=== PATIENT | female | born 1955 | race Caucasian/White ===

== ENCOUNTER 2017-11-22 09:41 | Observation (INO) | END 2017-11-23 14:58 | disposition home or self-care (01) ==

== ENCOUNTER 2018-08-09 18:36 | Emergency (ER) | payer OTHER ==
[~2018-08-09] VITALS: Ht 162.6 cm; Wt 63.1 kg
[~2018-08-09 18:36] MED LIST: BENA40TA56 PO; HYDR-3601 PO; LEVO50TA71 PO; LOVA20TA PO; NIFE30TA23 PO
[2018-08-09 18:38] VITALS: Ht 162.6 cm; Wt 63.1 kg
[2018-08-09] MEDS ORDERED: KETOROLAC 30 MG INJ IM STA (19:43)
[2018-08-09] MEDS ORDERED: MELO15TA30 PO (20:14)
--- NOTE | 2018-08-09 20:22 | ERD ---
ER Documentation Chief Complaint Chief Complaint unusual skin growth on her R elbow since HPI 30-year-old female patient with past medical history of hypertension, hyperlipidemia, thyroid problems presents to ED complaining of right elbow injury that occurred patient ports that she accidentally hit her elbow onto the table. Reports that she has normal range of motion however a bump started to form on her elbow. Denies any fever, chills, loss of sensation, loss of range of motion, increased redness. ROS All systems reviewed and are negative except as per history of present illness. Medications Home Meds Active Scripts Meloxicam* (Mobic*) 15 Mg Tablet, 15 MG PO DAILY, #30 TAB Prov:SONJA NOGUERA PA-C 08/09/18 Hydrocodone Bit-Acetaminophen (Hydrocodone Bit-APAP) 5-325MG Tablet, 1 TAB PO Q6H PRN for PAIN LEVEL 6-10, #30 TAB Prov:CARLEE FELIX 11/23/17 Reported Medications Levothyroxine Sodium* (Levoxyl*) 50 Mcg Tablet, 50 MCG PO BEFORE BREAKFAST, #30 TAB 11/22/17 Nifedipine* (Nifedipine ER*) 30 Mg Tablet.sa, 30 MG PO DAILY, TAB.SA 11/22/17 Lovastatin* (Lovastatin*) 20 Mg Tablet, 20 MG PO HS, TAB 11/22/17 Benazepril Hcl* (Benazepril Hcl*) 40 Mg Tablet, 40 MG PO DAILY, #30 TAB 11/22/17 Allergies Allergies: Coded Allergies: No Known Allergy (Unverified , 11/22/17) PMhx/Soc History of Surgery: Yes (RHINOPLASTY) Anesthesia Reaction: No Hx Neurological Disorder: No Hx Respiratory Disorders: No Hx Cardiac Disorders: Yes (HTN,HLP) Hx Psychiatric Problems: No Hx Miscellaneous Medical Probl: No Hx Alcohol Use: No Hx Substance Use: No Hx Tobacco Use: No Smoking Status: Never smoker FmHx Family History: No diabetes, No coronary disease Physical Exam Vitals Vital Signs Date Temp Pulse Resp B/P (MAP) Pulse Ox O2 O2 Flow FiO2 Time Delivery Rate 08/09/18 99.2 78 18 158/87 98 18:38 (110) Physical Exam Const: [id number], well-nourished. In no acute distress. Head: Atraumatic, normocephalic Eyes: Normal Conjunctiva without injection ENT: Normal external ear, nose and mouth. Neck: Full range of motion. No meningismus. Resp: Clear to auscultation bilaterally. No wheezing, rhonchi, rales, or crackles. No accessory muscle use. No retractions. Cardio: Regular rate and rhythm, no murmurs Skin: No petechiae or rashes Back: No midline tenderness. No CVA tenderness. Ext: No cyanosis, or edema. Cap refill less than 2 seconds. Distal pulses intact bilaterally. Fluctuant cyst like lesion noted on the right olecranon. No erythema, warmth to touch. Full range of motion with flexion, supination, pronation of bilateral elbows. Neur: Awake and alert. Normal gait and coordination. Muscle strength 5/5. Sensation intact bilaterally. Psych: Normal Mood and Affect Results 24 hrs Current Medications Medications Dose Sig/Aide Start Time Status Last (Trade) Ordered Route PRN Stop Time Admin Dose Reason Admin Ketorolac 30 mg ONCE STAT 08/09/18 DC 08/09/18 Tromethamine IM 19:43 19:48 (Toradol) 08/09/18 19:45 Procedures/MDM 63-year-old female patient with a past medical history of hypertension, hyperlipidemia, thyroid problems presents the ED complaining of a cyst of her right elbow. Patient is afebrile and nontoxic-appearing. On x-ray patient has an olecranon bursitis. An Feliciano wrap was placed for further treatment. Patient is placed in an Feliciano wrap. Splint Assessment: Neurovascularly intact pre and post splint placement with good fit. Patient's extremity symptoms have stabilized while they have been evaluated in the department and are appropriate for outpatient follow up. No evidence of fractures, dislocations, compartment syndrome, neurologic injury, vascular injury, open joint, open fracture, tendon laceration, septic arthritis, osteomyelitis, DVT, foreign body, or other emergent conditions. Diagnosis: Olecranon Bursitis Discharge medications: Mobic Follow up with primary care physician in 1-2 days. Instructed patient to return to the ED sooner for any worsening symptoms. Patient's questions were answered. Patient is hemodynamically stable. Patient understood and agreed with discharge plan. Patient discharged stable. Disclaimer: Inadvertent spelling and grammatical errors are likely due to EHR/dictation software use and do not reflect on the overall quality of patient care. Also, please note that the electronic time recorded on this note does not necessarily reflect the actual time of the patient encounter. Departure Diagnosis: Primary Impression: Olecranon bursitis Laterality: right Qualified Codes: M70.21 - Olecranon bursitis, right elbow Condition: Stable Patient Instructions: Bursitis, Elbow (Olecranon) Referrals: [facility] 7 a.m.- 11 p.m. Every Day of the Week NO APPOINTMENT OR AUTHORIZATION NEEDED [facility] CL[facility]IC () Usted se العراقي hecho un examen mdico de control que le indica que no est en tad condicin que requiera tratamiento urgente en el Departamento de Emergencia. Un estudio ms profundo y el tratamiento de fu condicin pueden esperar sin ningn riesgo hasta que usted sea atendida/o en el consultorio de fu mdico o tad clnica. Es responsabilidad suya arreglar tad felicitas para el seguimiento del kay. MANEJO DE CONDICIONES NO URGENTES EN EL FUTURO 1) Si usted tiene un mdico de atencin primaria: Usted debera llamar a fu mdico de atencin primaria antes de venir al departamento de emergencia. Despus de las horas de consultorio, fu doctor o fu asociado/a est disponible por telfono. El mdico o enfermero de hudson en el servicio telefnico puede asesorarle por mikaela medio para atender el problema, o kay contrario se puede programar tad felicitas. 2) Si usted no tiene un mdico de atencin primaria: Llame al mdico o clnica de referencia que aparece abajo mark las horas de consultorio para hacer tad felicitas para que le vean. CLINICAS: [facility] [phone] [address] [facility] 409 [phone] [address] [facility] [phone] [facility] 500 [phone] [address] [facility]. [facility] [phone] [facility]. [phone] [place] [facility] Hours: Mon-Fri 9:00 AM - 5:00 PM [facility] () Usted se العراقي hecho un examen mdico de control que le indica que no est en tad condicin que requiera tratamiento urgente en el Departamento de Emergencia. Un estudio ms profundo y el tratamiento de fu condicin pueden esperar sin ningn riesgo hasta que usted sea atendida/o en el consultorio de fu mdico o tad clni ca. Es responsabilidad suya arreglar tad felicitas para el seguimiento del kay. MANEJO DE CONDICIONES NO URGENTES EN EL FUTURO 1) Si usted tiene un mdico de atencin primaria: Usted debera llamar a fu mdico de atencin primaria antes de venir al departam ento de emergencia. Despus de las horas de consultorio, fu doctor o fu asociado/a est disponible por telfono. El mdico o enfermero de hudson en el servicio telefnico puede asesorarle por mikaela medio para atender el problema, o kay contrario se puede programar tad felicitas. 2) Si usted no tiene un mdico de atencin primaria: Llame al mdico o condado institucions de referencia que aparece abajo mark las horas de consultorio para hacer tad felicitas para que le vean. SI USTED NO PUEDE PAGAR PARA VICKI UN MEDICO puede ir a: [facility] [id number] [place] [address] [facility] [address] [place] [address] [facility] [address] [place] [address] [facility] [address] [place], [place] [id number] Additional Instructions: Llame al doctor MAANA y catarino tad FELICITAS PARA DENTRO DE 2-3 MOREJON.Dgale a la secretaria que nosotros le instruimos hacer esta felicitas.Avise o llame si fu condicin se empeora antes de la felicitas. Regresa aqui si peor o no mejor. SONJA NOGUERA PA-C Aug 09, 2018 20:22
[2018-08-09 20:25] VITALS: BP 136/85; PULSE 70; RESP 18
== END 2018-08-09 20:27 | disposition home or self-care (01) ==
LOC: FTE 18:36
DX: M70.21 Olecranon bursitis, right elbow (principal); I10 Essential (primary) hypertension; Y93.9 Activity, unspecified
CPT/HCPCS: 73080; 96372; J1885; Z7502